=== PATIENT | male | born 1940 | race Hispanic/Latino ===

== ENCOUNTER 2020-08-04 12:57 | Emergency (ER) | payer OTHER, MEDICARE ==
[~2020-08-04 12:57] MED LIST: LOSA50TA64 PO; MELO-106 PO; TAMS0.4C32 PO
[2020-08-04 13:33] LABS: BASOPHILS % (AUTO) 0.2 % (0.0-5.0); HEMATOCRIT 38.1 % (42-54); LYMPHOCYTES % (AUTO) 28.5 % (21.0-51.0); MEAN CORPUSCULAR HEMOGLOBIN 32.7 pg (27.0-33.0); MEAN CORPUSCULAR HGB CONC 36.2 g/dL (32.0-36.0); MEAN CORPUSCULAR VOLUME 90.3 fL (79-99); MONOCYTES % (AUTO) 7.3 % (3.0-13.0); NEUTROPHILS % (AUTO) 62.8 % (40.0-77.0); PLATELET COUNT (AUTO) 239 K/uL (130-400); RED BLOOD CELL COUNT(AUTO) 4.22 MIL/uL (4.50-6.20); RED CELL DISTRIBUTION WIDTH 11.9 % (11.0-15.5); WHITE BLOOD COUNT (AUTO) 6.3 K/uL (4.8-10.8)
[2020-08-04 13:48] LABS: CREATININE 0.8 mg/dL (0.5-1.5); POTASSIUM 4.5 mmol/L (3.5-5.1)
[2020-08-04 13:52] LABS: ALBUMIN 3.9 g/dL (3.5-5.0); BILIRUBIN,TOTAL 0.3 mg/dL (0.2-1.0); MAGNESIUM 1.8 mg/dL (1.80-2.40); TOTAL PROTEIN, SERUM 7.3 g/dL (6.0-8.3)
== END 2020-08-04 15:02 | disposition home or self-care (01) ==
LOC: EDH 12:57
DX: R19.7 Diarrhea, unspecified (principal); K21.9 Gastro-esophageal reflux disease without esophagitis; I10 Essential (primary) hypertension; Z88.6 Allergy status to analgesic agent; Z79.899 Other long term (current) drug therapy
CPT/HCPCS: 36415; 80053; 83735; 85025; 96360

== ENCOUNTER → 2020-09-27 | Outpatient (CLI) | payer OTHER, MEDICARE | END | disposition home or self-care (01) | LOC: RAH 08:27 | PROVIDERS: ATTEND Internal Medicine Gastroenterology | DX: K57.30 Diverticulosis of large intestine without perforation or abscess without bleeding (principal); N28.1 Cyst of kidney, acquired; K40.90 Unilateral inguinal hernia, without obstruction or gangrene, not specified as recurrent; Z90.49 Acquired absence of other specified parts of digestive tract | CPT/HCPCS: 74178 ==

== ENCOUNTER → 2020-12-30 | Outpatient (CLI) | payer OTHER, MEDICARE ==
[~2020-12-30] MED LIST changes: +IOHEXOL-350 50ML VIAL IV ONE
== END | disposition home or self-care (01) ==
LOC: RAH 10:31
PROVIDERS: ATTEND Internal Medicine Gastroenterology
DX: R59.0 Localized enlarged lymph nodes (principal); R63.4 Abnormal weight loss
CPT/HCPCS: 74178; Q9967

== ENCOUNTER 2023-09-27 16:31 | Emergency (ER) | payer OTHER, MEDICARE ==
[~2023-09-27] VITALS: Ht 162.6 cm; Wt 63.5 kg
[~2023-09-27 16:31] MED LIST changes: -IOHEXOL-350 50ML VIAL IV ONE
[2023-09-27 19:01] LABS: RAPID GROUP A STREP negative (NEGATIVE)
[2023-09-27 19:08] LABS: SARS-CoV-2, RNA, NAAT NEGATIVE SARS CoV-2 (NEGATIVE)
[2023-09-27 19:12] LABS: INFLUENZA TYPE A Negative For Type A (NEGATIVE); INFLUENZA TYPE B Negative For Type B (NEGATIVE)
[2023-09-27 19:47] VITALS: BP 140/66; PULSE 84; RESP 18; O2SAT 97
[2023-09-27] MEDS ORDERED: BROM118S48 PO (20:07)
[2023-09-27] MEDS ORDERED: PRED20TA3 PO (20:07)
[2023-09-27] MEDS ORDERED: FLUT16H NASAL (20:07)
[2023-10-02] MEDS ORDERED: OMEP40CA21 PO (08:36)
[2023-10-02] MEDS ORDERED: LISI20TA24 PO (08:36)
== END 2023-09-27 20:14 | disposition home or self-care (01) ==
LOC: EDH 16:31
DX: J06.9 Acute upper respiratory infection, unspecified (principal); R05.9 Cough, unspecified; Z20.822 Contact with and (suspected) exposure to COVID-19
CPT/HCPCS: 99284; 71045; 87635; 87880; 87804 ×2; C9803

== ENCOUNTER 2025-04-21 02:29 | Emergency (ER) | payer OTHER, MEDICARE ==
[~2025-04-21] VITALS: Ht 162.6 cm; Wt 65.8 kg
[~2025-04-21 02:29] MED LIST changes: +FLUT16H NASAL; +LISI20TA24 PO; -LOSA50TA64 PO; -MELO-106 PO; +OMEP40CA21 PO
[2025-04-21 02:35] VITALS: TEMP 98.2
[2025-04-21] MEDS: LACTATED RINGERS 1000ML 1,000 ML IV ONE (02:44)
[2025-04-21 03:05] LABS: CREATININE 0.8 mg/dL (0.5-1.3); GLOMERULAR FILTR. RATE CALC 88.0 mL/min (>90); GLUCOSE,RANDOM 112.0 mg/dL (70-105); SODIUM SERUM 138.0 mmol/L (136-145); UREA NITROGEN, BLOOD 17.0 mg/dL (7-18)
[2025-04-21 03:07] LABS: IMMATURE GRANULOCYTE ABSOLUTE 0.03 K/uL (0-1); NUCLEATED RED BLOOD CELLS 0.0 % (0.0-0.19); PLATELET COUNT (AUTO) 202 K/uL (130-400); RED BLOOD CELL COUNT(AUTO) 4.11 MIL/uL (4.50-6.20); RED CELL DISTRIBUTION WIDTH 12.5 % (11.0-15.5); WHITE BLOOD COUNT (AUTO) 6.3 K/uL (4.8-10.8)
[2025-04-21 03:10] LABS: CREATINE KINASE, TOTAL 100.0 U/L (21-232)
[2025-04-21 03:30] LABS: SARS-CoV-2, RNA, NAAT NEGATIVE SARS CoV-2 (NEGATIVE)
[2025-04-21 03:34] LABS: INFLUENZA TYPE A Negative For Type A (NEGATIVE); INFLUENZA TYPE B Negative For Type B (NEGATIVE)
--- NOTE | 2025-04-21 03:57 | ERN ---
General Chief Complaint: Dizzy/Light Headed Stated Complaint: DIZZINESS Time Seen by MD: 02:33 Source: patient History of Present Illness Initial Comments PATIENT IS A 84-YEAR-OLD MALE COMING IN TO BE EVALUATED FOR GENERALIZED BODY WEAKNESS AND NEAR-SYNCOPE. PER PATIENT THIS HAS BEEN ONGOING SINCE EARLIER TODAY. STATES HE FELT VERY WEAK NAUSEOUSNESS THAT HAS HAS A COME IN TO BE EVALUATED. Allergies: Coded Allergies: codeine (Unverified Allergy, Unknown, 09/27/23) diphenhydramine (Unverified Allergy, Unknown, 01/21/16) Home Meds Active Scripts Fluticasone Propionate (Flonase Nasal [place]) 50 Mcg/Actuation [place], 1 SPRAY NASAL BID for 7 Days, #50 SPRAY Prov:CORNELIA RON PLATING DEPARTMENT HELPER 09/27/23 Reported Medications Lisinopril (Lisinopril) 20 Mg Tablet, 20 MG PO DAILY, TAB 10/02/23 Omeprazole (Omeprazole) 40 Mg Capsule.dr, 40 MG PO DAILY, CAP 10/02/23 Tamsulosin HCl (Tamsulosin HCl) 0.4 Mg Cap.er.24h, 0.4 MG PO DAILY, CAPSULE. 01/21/16 Past Medical History Past Medical History: GERD, Hypertension Past Surgical History: Unknown Family History Family History: Negative ROS Dictation CONSTITUTIONAL: NO CHILLS, NO FEVER,WEAKNESS, NO DIAPHORESIS, MALAISE. HEAD/FACE: NO SIGNS OF TRAUMA. EENT: NO EYE PAIN, NO BLURRED VISION, NO TEARING, NO DOUBLE VISION, NO EAR PAIN, NO EAR DISCHARGE, NO NOSE PAIN, NO NASAL CONGESTION, NO THROAT PAIN, NO THROAT SWELLING, NO MOUTH PAIN. RESPIRATORY: NO COUGH, NO ORTHOPNEA, NO SOB, NO STRIDOR, NO WHEEZING. CARDIOVASCULAR: NO CHEST PAIN, NO EDEMA, NO PALPITATIONS, NO SYNCOPE. GASTROINTESTINAL/ABDOMINAL: NO ABDOMINAL PAIN, NO CONSTIPATION, NO DIARRHEA, NO NAUSEA, NO VOMITING. GENITOURINARY: NO ABNORMAL DISCHARGE, NO DYSURIA, NO FREQUENT URINATION, NO HEMATURIA. NO COMPLAINTS OF PAIN IN THE GENITALS. MUSCULOSKELETAL: NO BACK PAIN, NO GOUT, NO JOINT PAIN, NO JOINT SWELLING, NO MUSCLE PAIN, NO MUSCLE STIFFNESS, NO NECK PAIN. INTEGUMENTARY: NO CHANGE IN COLOR, NO CHANGE IN HAIR/NAILS, NO DRYNESS, NO LESION, NO LUMPS, NO RASH. NEUROLOGICAL/PSYCH: NO ANXIETY, NOT DEPRESSED, NO EMOTIONAL PROBLEM, NO HEADACHE, NO NUMBNESS, NO PRE-EXISTING DEFICIT, NO HISTORY OF SEIZURES, NO TREMORS, NO WEAKNESS. HEMATOLOGIC/LYMPHATIC: NOT ANEMIC, NO HISTORY OF BLOOD CLOTS, NO APPARENT BLEEDING, NO BRUISING, GLANDS NOT SWOLLEN. ALL SYSTEMS NEGATIVE, EXCEPT NOTED. Physical Exam Physical Exam Dictation VITAL SIGNS: REVIEWED. GENERAL APPEARANCE: ALERT, ORIENTED X3, NO ACUTE DISTRESS, OBESE. HEAD AND FACE: NON-TRAUMATIC. EYES: PERRL, PINK CONJUNCTIVAS, EYELID NO TRAUMA, ANTERIOR CHAMBER CLEAR. EARS: PINNAS INTACT AND NO SIGNS OF TRAUMA OR ERYTHEMA. EAR CANALS CLEAR AND NO DISCHARGE. TMS NO ERYTHEMA. NOSE: NO DISCHARGE, NO BLEEDING. OROPHARYNX: MOUTH NORMAL, TEETH NO CARIES, TONGUE PINK. PHARYNX CLEAR, NO ERYTHEMA. TONSILS NO EXUDATES, NO ABSCESSES NOTED. MUCOUS MEMBRANE MOIST. NECK: SUPPLE, NON-TENDER, NO THYROMEGALY, NO MASSES, NO JVD, NO BRUITS. BREAST: DEFERRED. CHEST: NO TENDERNESS, NO CREPITUS, NO PARADOXICAL MOVEMENT, NO RETRACTIONS. LUNGS: CLEAR, WELL-VENTILATED, SYMMETRIC, NO RALES, NO WHEEZING, NO RHONCHI, NO STRIDOR, GOOD BREATH SOUNDS BILATERALLY. HEART: REGULAR RATE, REGULAR RHYTHM, NO MURMUR, NO GALLOPS. VASCULAR: NO PERIPHERAL EDEMA. ABDOMEN: SOFT, POSITIVE BOWEL SOUNDS, NONDISTENDED, NO GUARDING, NONTENDER, NO REBOUND, NO MASSES NO HEPATOMEGALY, NO SPLENOMEGALY, NO MUÑOZ'S SIGN, NO HERNIAS. RECTAL: DEFERRED. GENITAL: DEFERRED. NEUROLOGICAL: NORMAL SPEECH, GROSS MOTOR FUNCTION INTACT, GROSS SENSORY FUNCTION INTACT. MUSCULOSKELETAL: NECK NONTENDER, FULL RANGE OF MOTION, BACK NONTENDER, FULL RANGE OF MOTION. EXTREMITIES: NONTENDER, FULL RANGE OF MOTION. SKIN: COLOR PINK, DRY, NO TURGOR, NO RASH, NO LACERATIONS, NO ABRASIONS, NO CONTUSIONS. LYMPHATICS: DEFERRED. Results Laboratory and Microbiology Lab and Micro Result Laboratory Tests Test 04/21/25 02:42 04/21/25 03:10 04/21/25 06:00 White Blood Count 6.3 K/uL (4.8-10.8) Red Blood Count 4.11 MIL/uL (4.50-6.20) L Hemoglobin 13.5 g/dL (14.0-18.0) L Hematocrit 37.8 % (42-54) L Mean Corpuscular Volume 92.0 fL (79-99) Mean Corpuscular Hemoglobin 32.8 pg (27.0-33.0) Mean Corpuscular Hemoglobin Concent 35.7 g/dL (32.0-36.0) Red Cell Distribution Width 12.5 % (11.0-15.5) Platelet Count 202 K/uL (130-400) Mean Platelet Volume 9.3 fL (7.5-10.5) Immature Granulocyte % (Auto) 0.5 % (0-1) Neutrophils (%) (Auto) 47.4 % (40.0-77.0) Lymphocytes (%) (Auto) 41.4 % (21.0-51.0) Monocytes (%) (Auto) 7.2 % (3.0-13.0) Eosinophils (%) (Auto) 3.3 % (0.0-8.0) Basophils (%) (Auto) 0.2 % (0.0-5.0) Neutrophils # (Auto) 3.0 K/uL (1.8-7.7) Lymphocytes # (Auto) 2.6 K/uL (1.0-4.8) Monocytes # (Auto) 0.5 K/uL (0.1-1.0) Eosinophils # (Auto) 0.21 K/uL (0.00-0.70) Basophils # (Auto) 0.01 K/uL (0.00-0.20) Absolute Immature Granulocyte (auto 0.03 K/uL (0-1) Nucleated Red Blood Cells 0.0 % (0.0-0.19) Sodium Level 138 mmol/L (136-145) Potassium Level 4.3 mmol/L (3.5-5.1) Chloride Level 102 mmol/L (101-111) Carbon Dioxide Level 26 mmol/L (21-32) Blood Urea Nitrogen 17 mg/dL (7-18) Creatinine 0.8 mg/dL (0.5-1.3) Glomerular Filtration Rate Calc 88 mL/min (>90) Random Glucose 112 mg/dL (70-105) H Total Calcium 9.0 mg/dL (8.5-10.1) Magnesium Level 1.90 mg/dL (1.80-2.40) Total Creatine Kinase 100 U/L (21-232) # Troponin I High Sensitivity 23 ng/L (4-75) Influenza Type A Antigen Negative For Type A Influenza Type B Antigen Negative For Type B SARS-CoV-2, RNA, NAAT NEGATIVE SARS CoV-2 Urine Color YELLOW (YELLOW) Urine Appearance CLEAR (CLEAR) Urine pH 6.5 (5.0-8.0) Urine Specific [place] 1.007 (1.001-1.031) Urine Protein NEGATIVE mg/dL (NEGATIVE) Urine Glucose (UA) NEGATIVE mg/dL (NEGATIVE) Urine Ketones NEGATIVE mg/dL (NEGATIVE) Urine Occult Blood NEGATIVE (NEGATIVE) Urine Nitrate NEGATIVE (NEGATIVE) Urine Bilirubin NEGATIVE mg/dL (NEGATIVE) Urine Urobilinogen 0.2 mg/dL (0.2-1.0) Urine Leukocyte Esterase NEGATIVE Kyle/uL Labs Reviewed?: Yes EKG/XRAY/US/CT/MRI EKG Comment 04/21/2025 TIME 2:34 A.M. VENTRICULAR RATE [address] WAVE ELEVATION OR DEPRESSION X-RAY Comment IMAGING REPORT Signed PATIENT: SHELDON OCHOA MR#: [id number] : 1940 SEX: M AGE: 84 LOCATION: [facility] ORDER 7 STATUS: [facility] REPORT#: [id number] SERVICE 6 REASON: WEAKNESS ORDERING PHYSICIAN: LUKE MCDANIEL MD PROCEDURE: CXR1VW - CHEST 1VW EXAM: CR Chest, 1 view CLINICAL HISTORY: Weakness. COMPARISON: None provided. FINDINGS: The lungs show no infiltrates or other acute findings. No pleural effusion or pneumothorax. The cardiomediastinal silhouette is within normal limits. No acute osseous abnormality. IMPRESSION: No acute cardiopulmonary process is evident. /Joppa DICTATED BY: ANABELA CARRANZA Jr., MD DATE: 04/21/25509 ELECTRONICALLY SIGNED BY: ANABELA CARRANZA Jr., MD DATE: 04/21/25509 MDM MDM: DIFFERENTIAL DIAGNOSIS: NEAR-SYNCOPE, dehydration, RATIONALE: TESTS CONSIDERED AND ORDERED SECONDARY TO SHARED DECISION MAKING INCLUDE: PREVIOUS OUTSIDE RECORDS REVIEWED: OLD ER VISITS. RISK OF COMPLICATION AND/OR MORBIDITY OR MORTALITY OF PATIENT MANAGEMENT: NONE MEDICATIONS-PER MEDICATION RECONCILIATION NEED FOR HOSPITALIZATION: PATIENT DOES NOT MEET CRITERIA FOR HOSPITALIZATION. Patient is a 84-year-old gentleman coming in to be evaluated for generalized body weakness. Patient was hydrated states he feels much better wants to go home. Patient will be discharged in stable condition. ED Course Orders Procedure Category Date Status Time Cbc With Differential LAB 04/21/25 Complete 02:37 Chest 1vw RAD 04/21/25 Resulted 02:37 12 Lead Ekg Tracing- EKG 04/21/25 Logged Technical 02:37 Lactated Ringers PHA 04/21/25 Complete 1000ml (Lactated 03:00 Magnesium LAB 04/21/25 Complete 02:37 Creatine Kinase, Total LAB 04/21/25 Complete 02:37 Troponin I High LAB 04/21/25 Complete Sensitivity 02:37 Urinalysis Profile LAB 04/21/25 Complete 02:37 Basic Metabolic Panel LAB 04/21/25 Complete 02:37 Covid Rna Naat LAB 04/21/25 Complete 02:37 Influenza Type A & B, LAB 04/21/25 Complete Rapid 02:37 Current Medications Medications (Trade) Dose Ordered Sig/Lisa Route PRN Reason Start Time Stop Time Status Last Admin Dose Admin Lactated Ringer's 1,000 ml @ 0 mls/hr ONCE ONCE IV 04/21/25 03:00 04/21/25 03:01 DC 04/21/25 02:44 Vital Signs Date Time Temp Pulse Resp B/P (MAP) Pulse Ox O2 Delivery O2 Flow Rate FiO2 04/21/25 05:21 69 16 116/59 96 Room Air* 0 04/21/25 03:55 72 16 121/62 96 Room Air* 0 04/21/25 03:12 81 18 130/73 97 Room Air* 0 04/21/25 02:35 98.2 76 16 124/61 97 Room Air DX & DISP Disposition: Discharge Departure Impression: Primary Impression: Dehydration Condition: Stable Additional Instructions: FOLLOW-UP WITH PRIMARY CARE PROVIDER IN 1 TO 2 DAYS. TAKE MEDICATIONS DIRECTED HERE IN THE EMERGENCY ROOM. OKAY TO CONTINUE HOME MEDICATIONS UNLESS OTHERWISE DISCUSSED DURING YOUR VISIT IN THE EMERGENCY ROOM TODAY. RETURN TO YOUR NEAREST EMERGENCY ROOM IF SYMPTOMS WORSEN OR IF THERE IS NO IMPROVEMENT. CALL 911 IF YOU NEED IMMEDIATE ASSISTANCE. TAKE TYLENOL YHMO-ABE-GCCGADE NEEDED AND IF NO CONTRAINDICATIONS ARE PRESENT. INCREASE ORAL HYDRATION. A WOUND CULTURE OR URINE CULTURE WAS ORDERED HERE IN THE EMERGENCY ROOM DEPARTMENT PLEASE FOLLOW-UP WITH PRIMARY CARE PROVIDER AND ADVISE THEM TO GET REPORTS FROM OUR FACILITY. IF YOU HAD ANY AEZEM WRAP/SPLINTS THAT WERE APPLIED HERE, PLEASE DO NOT REMOVE THEM UNTIL YOU SEE YOUR PRIMARY CARE OR SPECIALTY. Referrals: Referrals: MELISSA BRANDON MD (PCP) Time of Disposition: 06:22 LUKE MCDANIEL MD Apr 21, 2025 03:57
--- NOTE | 2025-04-21 04:12 | HMCIMG ---
EXAM: CR Chest, 1 view CLINICAL HISTORY: Weakness. COMPARISON: None provided. FINDINGS: The lungs show no infiltrates or other acute findings. No pleural effusion or pneumothorax. The cardiomediastinal silhouette is within normal limits. No acute osseous abnormality. IMPRESSION: No acute cardiopulmonary process is evident. /Rector
[2025-04-21 06:12] LABS: APPEARANCE,URINE CLEAR (CLEAR); GLUCOSE, URINE (UA) NEGATIVE (NEGATIVE); LEUKOCYTE ESTERASE ,URINE NEGATIVE Leu/uL (NEGATIVE); NITRATE,URINE NEGATIVE (NEGATIVE); OCCULT BLOOD,URINE NEGATIVE (NEGATIVE)
[2025-04-21 06:18] LABS: ADD UA MICROSCOPIC NO
[2025-04-21 06:20] VITALS: BP 120/60; PULSE 75; RESP 17; O2SAT 97
--- NOTE | 2025-04-21 06:48 | EKG ---
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
== END 2025-04-21 06:33 | disposition home or self-care (01) ==
LOC: EDH 02:29
DX: E86.0 Dehydration (principal); I10 Essential (primary) hypertension; K21.9 Gastro-esophageal reflux disease without esophagitis; Z79.899 Other long term (current) drug therapy; Z88.5 Allergy status to narcotic agent; Z20.822 Contact with and (suspected) exposure to COVID-19
CPT/HCPCS: 99285; 96360; 71045; 87635; 82550; 83735; 84484; 80048; 85025; 87804 ×2; 81003; 36415; 93005; J7120

== ENCOUNTER 2025-07-28 22:09 | Emergency (ER) | payer OTHER, MEDICAID ==
[~2025-07-28] VITALS: Ht 162.6 cm; Wt 64.0 kg
[2025-07-28 22:44] LABS: IMMATURE GRANULOCYTE ABSOLUTE 0.03 K/uL (0-1); NUCLEATED RED BLOOD CELLS 0.0 % (0.0-0.19); PLATELET COUNT (AUTO) 194 K/uL (130-400); RED BLOOD CELL COUNT(AUTO) 3.81 MIL/uL (4.50-6.20); RED CELL DISTRIBUTION WIDTH 12.4 % (11.0-15.5); WHITE BLOOD COUNT (AUTO) 6.2 K/uL (4.8-10.8)
[2025-07-28 22:52] LABS: CREATININE 0.8 mg/dL (0.5-1.3); GLOMERULAR FILTR. RATE CALC 88.0 mL/min (>90); GLUCOSE,RANDOM 104.0 mg/dL (70-105); SODIUM SERUM 137.0 mmol/L (136-145); UREA NITROGEN, BLOOD 23.0 mg/dL (7-18)
[2025-07-28 22:57] LABS: ASPARTATE AMINOTRANSFERASE 25.0 U/L (10-37); TOTAL PROTEIN, SERUM 6.8 g/dL (6.0-8.3)
--- NOTE | 2025-07-28 23:22 | ERN ---
General Chief Complaint: Abdominal Pain Stated Complaint: LEFT SIDED ABDOMINAL PAIN Time Seen by MD: 22:20 Time Seen by Midlevel: 22:20 Source: patient History of Present Illness Initial Comments 84-year-old male presenting to the ER with left-sided abdominal pain that started prior to arrival. However, on arrival with the patient states his symptoms completely resolved. Denies any nausea, vomiting, fever, bloody stool, or any other symptoms at this time. Allergies: Coded Allergies: codeine (Unverified Allergy, Unknown, 09/27/23) diphenhydramine (Unverified Allergy, Unknown, 01/21/16) Home Meds Active Scripts Fluticasone Propionate (Flonase Nasal [place]) 50 Mcg/Actuation [place], 1 SPRAY NASAL BID for 7 Days, #50 SPRAY Prov:CORNELIA RON LATENT FINGERPRINT EXAMINER 09/27/23 Reported Medications Lisinopril (Lisinopril) 20 Mg Tablet, 20 MG PO DAILY, TAB 10/02/23 Omeprazole (Omeprazole) 40 Mg Capsule.dr, 40 MG PO DAILY, CAP 10/02/23 Tamsulosin HCl (Tamsulosin HCl) 0.4 Mg Cap.er.24h, 0.4 MG PO DAILY, CAPSULE. 01/21/16 Past Medical History Past Medical History: GERD, Hypertension Past Surgical History: Unknown Family History Family History: Negative ROS Dictation CONSTITUTIONAL: Negative except for HPI HEAD/FACE: Negative except for HPI EENT: Negative except for HPI RESPIRATORY: Negative except for HPI GASTROINTESTINAL/ABDOMINAL: Negative except for HPI GENITOURINARY: Negative except for HPI MUSCULOSKELETAL: Negative except for HPI INTEGUMENTARY: Negative except for HPI NEUROLOGICAL/PSYCH: Negative except for HPI HEMATOLOGIC/LYMPHATIC: Negative except for HPI All Systems Negative, Except as noted above. 13 point review of systems assessed and all negative except for above. Physical Exam Physical Exam Dictation Vital Signs reviewed General Appearance: Alert, oriented x 3, no acute distress, well developed, nourished. Head and Face: non-traumatic. Eyes: PERRL, pink conjunctivas, eyelid no trauma, anterior chamber with arcus senilis. Ears: Pinnas intact and no signs of trauma or erythema ear canals clear and no discharge TM no erythema Nose: No discharge, no bleeding. Oropharynx: Mouth normal, tongue pink, pharynx clear,no erythema, tonsils no exudates, no abscesses noted, mucous membrane moist Neck: Supple, non-tender, no thyromegaly, no masses, no JVD, no bruits Breast:Deferred Chest:No tenderness, no crepitus, no paradoxical movement, no retractions Lungs:Clear, well-ventilated, symmetric, no rales, no wheezing, no rhonchi, no stridor, good breath sounds bilaterally Heart: Regular rate, regular rhythm, no murmur, no gallops Vascular: no peripheral edema, Abdomen: Soft, positive bowel sounds, nondistended, no guarding, nontender, no rebound, no masses no hepatomegaly, no splenomegaly, no Mejia's sign, no hernias. Rectal: Deferred Genital: Deferred Neurological: Normal speech, motor function intact, sensory function intact Musculoskeletal: Neck nontender, full range of motion, back nontender, full range of motion, Extremities: nontender, full range of motion Skin: Color pink, dry, no turgor, no rash, no lacerations, no abrasions, no contusions. Lymphatic: Deferred Results Laboratory and Microbiology Lab and Micro Result Laboratory Tests Test 07/28/25 22:23 07/28/25 23:18 White Blood Count 6.2 K/uL (4.8-10.8) Red Blood Count 3.81 MIL/uL (4.50-6.20) L Hemoglobin 12.6 g/dL (14.0-18.0) L Hematocrit 35.0 % (42-54) L Mean Corpuscular Volume 91.9 fL (79-99) Mean Corpuscular Hemoglobin 33.1 pg (27.0-33.0) H Mean Corpuscular Hemoglobin Concent 36.0 g/dL (32.0-36.0) Red Cell Distribution Width 12.4 % (11.0-15.5) Platelet Count 194 K/uL (130-400) Mean Platelet Volume 9.8 fL (7.5-10.5) Immature Granulocyte % (Auto) 0.5 % (0-1) Neutrophils (%) (Auto) 64.9 % (40.0-77.0) Lymphocytes (%) (Auto) 24.4 % (21.0-51.0) Monocytes (%) (Auto) 8.1 % (3.0-13.0) Eosinophils (%) (Auto) 1.9 % (0.0-8.0) Basophils (%) (Auto) 0.2 % (0.0-5.0) Neutrophils # (Auto) 4.0 K/uL (1.8-7.7) Lymphocytes # (Auto) 1.5 K/uL (1.0-4.8) Monocytes # (Auto) 0.5 K/uL (0.1-1.0) Eosinophils # (Auto) 0.12 K/uL (0.00-0.70) Basophils # (Auto) 0.01 K/uL (0.00-0.20) Absolute Immature Granulocyte (auto 0.03 K/uL (0-1) Nucleated Red Blood Cells 0.0 % (0.0-0.19) Sodium Level 137 mmol/L (136-145) Potassium Level 4.4 mmol/L (3.5-5.1) Chloride Level 103 mmol/L (101-111) Carbon Dioxide Level 25 mmol/L (21-32) Blood Urea Nitrogen 23 mg/dL (7-18) H Creatinine 0.8 mg/dL (0.5-1.3) Glomerular Filtration Rate Calc 88 mL/min (>90) Random Glucose 104 mg/dL (70-105) Total Calcium 8.7 mg/dL (8.5-10.1) Total Bilirubin 0.5 mg/dL (0.2-1.0) Direct Bilirubin 0.2 mg/dL (0.0-0.3) Aspartate Amino Transf (AST/SGOT) 25 U/L (10-37) Alanine Aminotransferase (ALT/SGPT) 22 U/L (12-78) Alkaline Phosphatase 36 U/L (50-136) L Total Protein 6.8 g/dL (6.0-8.3) Albumin 3.7 g/dL (3.5-5.0) Lipase 35 U/L (16-77) Urine Color LIGHT-YELLOW (YELLOW) Urine Appearance CLEAR (CLEAR) Urine pH 6.0 (5.0-8.0) Urine Specific [place] 1.016 (1.001-1.031) Urine Protein NEGATIVE mg/dL (NEGATIVE) Urine Glucose (UA) NEGATIVE mg/dL (NEGATIVE) Urine Ketones NEGATIVE mg/dL (NEGATIVE) Urine Occult Blood +- (TRACE) (NEGATIVE) H Urine Nitrate NEGATIVE (NEGATIVE) Urine Bilirubin NEGATIVE mg/dL (NEGATIVE) Urine Urobilinogen 0.2 mg/dL (0.2-1.0) Urine Leukocyte Esterase NEGATIVE Kyle/uL Urine RBC 2-5 /HPF (0-1) H Urine WBC 0-1 /HPF (0-1) Urine Squamous Epithelial Cells RARE /HPF (0-2) Urine Bacteria RARE /HPF (None Seen) Labs Reviewed?: Yes MDM MDM: 84-year-old male presenting to the ER with left-sided abdominal pain that started prior to arrival. However, on arrival with the patient states his symptoms completely resolved. Denies any nausea, vomiting, fever, bloody stool, or any other symptoms at this time. On physical examination patient is in no acute distress. Vital signs are stable. Patient is afebrile and nontoxic appearing. His abdominal examination is unremarkable. He has no left lower quadrant or left upper quadrant abdominal tenderness, rebound, or guarding. His CBC shows no leukocytosis. His chemistries are stable. Patient has no history of diverticulitis. No need for advanced imaging given unremarkable labs and unremarkable physical examination. Patient has been pain-free during his entire ER visit. We will discharged home with strict return precautions Differential diagnosis: Constipation, diverticulitis, There are no social concerns with this patient. Prescription drug management Prescriptions will include: None Medical management and examination interpretation discussions were had by me with other qualified healthcare professionals as indicated for the patient's care. ED Course Orders Procedure Category Date Status Time Vital Signs Per CPOE 07/28/25 Transmitted Routine 22:15 Saline Lock Iv CPOE 07/28/25 Transmitted 22:15 Cbc With Differential LAB 07/28/25 Complete 22:15 Lipase LAB 07/28/25 Complete 22:15 Urinalysis Profile LAB 07/28/25 Complete 22:15 Basic Metabolic Panel LAB 07/28/25 Complete 22:15 Hepatic Function Panel LAB 07/28/25 Complete 22:23 Vital Signs Date Time Temp Pulse Resp B/P (MAP) Pulse Ox O2 Delivery O2 Flow Rate FiO2 07/29/25 00:47 98.2 72 14 132/68 97 Room Air* 0 21 07/28/25 22:29 97.9 76 14 137/72 96 Room Air* 0 21 DX & DISP Disposition: Discharge Departure Impression: Primary Impression: Left-sided abdominal pain of unknown etiology Condition: Stable Additional Instructions: Work today is stable. Your abdominal pain resolved while you were in the emergency department. Your physical examination showed no concerning findings. Your blood work does not show any signs infection. Please follow up your primary care doctor tomorrow for evaluation. If you develop any new or worsening symptoms please report to the ER further evaluation. Referrals: MELISSA BRANDON MD (PCP) Time of Disposition: 23:21 I have reviewed the case, and I agree with, Diagnosis and Plan I performed the substantive portion of the visit. I have reviewed and person ally made and approve the management plan that is documented in the note by myself or the KAM. I acknowledge for responsibility for the patient's management plan. RENETTA PAYAN PAC Jul 28, 2025 23:22
[2025-07-28 23:43] LABS: ADD UA MICROSCOPIC YES; APPEARANCE,URINE CLEAR (CLEAR); GLUCOSE, URINE (UA) NEGATIVE (NEGATIVE); LEUKOCYTE ESTERASE ,URINE NEGATIVE Leu/uL (NEGATIVE); NITRATE,URINE NEGATIVE (NEGATIVE); OCCULT BLOOD,URINE +- (TRACE) (NEGATIVE)
[2025-07-28 23:46] LABS: SQUAMOUS EPITHELIAL CELL,UR RARE /HPF (0-2)
[2025-07-29 00:47] VITALS: BP 132/68; PULSE 72; RESP 14; TEMP 98.2; O2SAT 97
== END 2025-07-29 00:49 | disposition home or self-care (01) ==
LOC: EDH 22:09
DX: R10.9 Unspecified abdominal pain (principal); I10 Essential (primary) hypertension; K21.9 Gastro-esophageal reflux disease without esophagitis; Z88.5 Allergy status to narcotic agent; Z79.899 Other long term (current) drug therapy
CPT/HCPCS: 36415; 80048; 80076; 81001; 83690; 85025; 99283

== ENCOUNTER 2025-09-09 00:22 | Emergency (ER) | payer OTHER, MEDICAID ==
[~2025-09-09] VITALS: Ht 162.6 cm; Wt 63.5 kg
[2025-09-09] MEDS ORDERED: LACTATED RINGERS 1000ML IV STA (00:52)
--- NOTE | 2025-09-09 00:56 | ERN ---
General Chief Complaint: Weakness Stated Complaint: GENERAL BODY WEAKNESS Time Seen by MD: 00:25 Source: patient History of Present Illness Initial Comments Patient comes in with a two day history of right blurry vision as well as increasing weakness and feeling off balance. He states he saw his primary care doctor two days ago regarding his right eye but nothing was done. He states he was admitted here and discharged with a diagnosis of dehydration as well as spending a week in the hospital here for pneumonia. I can not find in our medical chart and admission for pneumonia here. Patient told the cardiology clinical consultant that he has been feeling weak for the last two months and he comes in today because he felt worse. Timing/Duration: unsure Severity: moderate Allergies: Coded Allergies: codeine (Unverified Allergy, Unknown, 09/27/23) diphenhydramine (Unverified Allergy, Unknown, 01/21/16) Home Meds Active Scripts Fluticasone Propionate (Flonase Nasal [place]) 50 Mcg/Actuation [place], 1 SPRAY NASAL BID for 7 Days, #50 SPRAY Prov:CORNELIA RON ENTERPRISE RECORDS ANALYST 09/27/23 Reported Medications Lisinopril (Lisinopril) 20 Mg Tablet, 20 MG PO DAILY, TAB 10/02/23 Omeprazole (Omeprazole) 40 Mg Capsule.dr, 40 MG PO DAILY, CAP 10/02/23 Tamsulosin HCl (Tamsulosin HCl) 0.4 Mg Cap.er.24h, 0.4 MG PO DAILY, CAPSULE. 01/21/16 Past Medical History Past Medical History: GERD, Hypertension Medical History Other: BPH Past Surgical History: Unknown Family History Family History: Negative Social History Social History: Lives alone Constitutional: (-) chills, (-) diaphoresis, (-) fever, (-) malaise, (-) weakne ss, (-) other documentation EENTM: (+) blurred vision Respiratory: (-) cough, (-) orthopnea, (-) short of breath, (-) stridor, (-) wheezing, (-) other documentation Cardiovascular: (-) chest pain, (-) edema, (-) palpitations, (-) syncope, (-) dyspnea on exertion, (-) other documentation Gastrointestinal/Abdominal: (-) nausea, (-) vomiting, (-) diarrhea, (-) abdominal pain, (-) abdominal distention, (-) constipation, (-) rectal bleeding, (-) dark stool/melena, (-) other documentation Genitourinary: (-) penile discharge, (-) dysuria, (-) frequency, (-) hematuria, (-) pain, (-) other documentation Musculoskeletal: (-) Neck pain, (-) back pain, (-) Flank Pain, (-) joint pain, (-) joint swelling, (-) muscle pain, (-) muscle stiffness, (-) gout, (-) other documentation Neuro: (-) altered mental status, (-) headache, (-) syncope, (-) paralysis, (-) numbness, (-) seizure, (-) pre-existing deficit, (-) tremors, (-) weakness, (-) dizziness, (-) slurred speech, (-) vertigo, (-) other documentation Physical Exam General Appearance: (+) no apparent distress Orientation: (+) alert, (+) oriented x 3 Head/Face Trauma: No Eye: bilateral eye normal inspection, bilateral eye PERRL, bilateral eye EOMI Ear, Nose, Throat: (+) hearing grossly normal, (+) normal ENT inspection Neck: (+) normal inspection, (+) supple, (+) full range of motion Respiratory: (+) chest non-tender, (+) lungs clear, (+) well ventilated Heart: (+) regular, (+) no gallop Vascular: (+) no edema, (+) normal peripheral pulse, (+) no JVD Gastrointestinal: (+) soft, (+) non-tender, (+) bowel sound present Results Laboratory and Microbiology Lab and Micro Result Laboratory Tests Test 09/09/25 01:16 09/09/25 01:33 White Blood Count 5.5 K/uL (4.8-10.8) Red Blood Count 3.92 MIL/uL (4.50-6.20) L Hemoglobin 13.0 g/dL (14.0-18.0) L Hematocrit 36.2 % (42-54) L Mean Corpuscular Volume 92.3 fL (79-99) Mean Corpuscular Hemoglobin 33.2 pg (27.0-33.0) H Mean Corpuscular Hemoglobin Concent 35.9 g/dL (32.0-36.0) Red Cell Distribution Width 12.3 % (11.0-15.5) Platelet Count 209 K/uL (130-400) Mean Platelet Volume 9.3 fL (7.5-10.5) Immature Granulocyte % (Auto) 0.4 % (0-1) Neutrophils (%) (Auto) 53.8 % (40.0-77.0) Lymphocytes (%) (Auto) 33.9 % (21.0-51.0) Monocytes (%) (Auto) 8.8 % (3.0-13.0) Eosinophils (%) (Auto) 2.7 % (0.0-8.0) Basophils (%) (Auto) 0.4 % (0.0-5.0) Neutrophils # (Auto) 2.9 K/uL (1.8-7.7) Lymphocytes # (Auto) 1.9 K/uL (1.0-4.8) Monocytes # (Auto) 0.5 K/uL (0.1-1.0) Eosinophils # (Auto) 0.15 K/uL (0.00-0.70) Basophils # (Auto) 0.02 K/uL (0.00-0.20) Absolute Immature Granulocyte (auto 0.02 K/uL (0-1) Nucleated Red Blood Cells 0.0 % (0.0-0.19) Sodium Level 136 mmol/L (136-145) Potassium Level 4.2 mmol/L (3.5-5.1) Chloride Level 102 mmol/L (101-111) Carbon Dioxide Level 25 mmol/L (21-32) Blood Urea Nitrogen 20 mg/dL (7-18) H Creatinine 0.8 mg/dL (0.5-1.3) Glomerular Filtration Rate Calc 88 mL/min (>90) Random Glucose 107 mg/dL (70-105) H Total Calcium 8.5 mg/dL (8.5-10.1) Total Bilirubin 0.3 mg/dL (0.2-1.0) Aspartate Amino Transf (AST/SGOT) 14 U/L (10-37) Alanine Aminotransferase (ALT/SGPT) 18 U/L (12-78) Alkaline Phosphatase 41 U/L (50-136) L B-Type Natriuretic Peptide 10 pg/mL (0-100) Total Protein 6.8 g/dL (6.0-8.3) Albumin 3.7 g/dL (3.5-5.0) Urine Color LIGHT-YELLOW (YELLOW) Urine Appearance CLEAR (CLEAR) Urine pH 6.0 (5.0-8.0) Urine Specific [place] 1.015 (1.001-1.031) Urine Protein NEGATIVE mg/dL (NEGATIVE) Urine Glucose (UA) NEGATIVE mg/dL (NEGATIVE) Urine Ketones NEGATIVE mg/dL (NEGATIVE) Urine Occult Blood NEGATIVE (NEGATIVE) Urine Nitrate NEGATIVE (NEGATIVE) Urine Bilirubin NEGATIVE mg/dL (NEGATIVE) Urine Urobilinogen 0.2 mg/dL (0.2-1.0) Urine Leukocyte Esterase NEGATIVE Kyle/uL Labs Reviewed?: Yes EKG/XRAY/US/CT/MRI EKG: (+) NSR EKG Comment low voltage limb leads MDM MDM: Differential diagnosis: Hypotension, cardiac disease, dehydration, infection, UTI, malnutrition, orthostatic hypotension Rationale: Tests considered and ordered secondary to shared decision making include: Previous outside records reviewed: Old ER visits. Risk of complication and/or morbidity or mortality of patient management: None Medications-Per medication reconciliation Need for hospitalization: Patient does meet criteria for hospitalization. Need for emergency major/minor surgery: No There are no social concerns with this patient. Prescription drug management Prescriptions will include symptomatic care Patient's prior external medical records from other ER visits were reviewed by me as indicated. Prior testing and results from previous visits were reviewed. Prior tests were taken into account with medical decision making and resource utilization, independent historian/historians were used to obtain complete medical history. I independently interpreted the test that were performed, results were reviewed by me and considered findings on radiology if ordered. Patient's CBC shows mild anemia but is otherwise normal. Patient's chemistry panel is also likewise normal. There is a slight elevation in his BUN compared to baseline levels. His urine is negative for infection. Patient says he feels better I will discharge him home. ED Course Orders Procedure Category Date Status Time 12 Lead Ekg Tracing- EKG 09/09/25 Logged Technical 00:52 B-Type Natriuretic LAB 09/09/25 Complete Peptide 00:52 Comprehensive LAB 09/09/25 Complete Metabolic Panel 00:52 Cbc With Differential LAB 09/09/25 Complete 00:52 Urinalysis Profile LAB 09/09/25 Complete 00:52 Lactated Ringers PHA 09/09/25 Complete 1000ml (Lactated 00:52 Orthostatic Vital CPOE 09/09/25 Transmitted Signs 01:06 Lactated Ringers PHA 09/09/25 Complete 1000ml (Lactated 01:06 Current Medications Medications (Trade) Dose Ordered Sig/Lisa Route PRN Reason Start Time Stop Time Status Last Admin Dose Admin Lactated Ringer's (Lactated Ringers 1000ml) 1,000 ml BOLUS STAT IV 09/09/25 00:52 09/09/25 01:07 DC Lactated Ringer's (Lactated Ringers 1000ml) 2,000 ml BOLUS STAT IV 09/09/25 01:06 09/09/25 01:08 DC 09/09/25 02:16 Vital Signs Date Time Temp Pulse Resp B/P (MAP) Pulse Ox O2 Delivery O2 Flow Rate FiO2 09/09/25 02:21 71 18 114/60 97 Room Air* 0 09/09/25 01:38 77 18 122/65 97 Room Air* 0 09/09/25 00:24 98.1 72 16 130/71 100 Room Air 0 DX & DISP Disposition: Discharge Departure Impression: Primary Impression: Near syncope Additional Impressions: Dehydration, Weakness Condition: Stable Additional Instructions: Your laboratory studies are normal. You do not have a problem with your heart at this point. You do have signs of dehydration from your chemistry panel it does show a slight elevation in your BUN. Otherwise the rest of your lab studies are normal. Drink more fluids drink enough fluids every day so that your urine runs clear at least once a day. Please follow-up with your primary care physician as you seemed to be getting admitted to this hospital frequently for dehydration. Perhaps you can come up with a plan with her primary care physician such as drinking Pedialyte every day. Referrals: MELISSA BRANDON MD (PCP) JOSETTE MARTINEZ MD Sep 09, 2025 00:56
[2025-09-09 01:27] LABS: IMMATURE GRANULOCYTE ABSOLUTE 0.02 K/uL (0-1); NUCLEATED RED BLOOD CELLS 0.0 % (0.0-0.19); PLATELET COUNT (AUTO) 209 K/uL (130-400); RED BLOOD CELL COUNT(AUTO) 3.92 MIL/uL (4.50-6.20); RED CELL DISTRIBUTION WIDTH 12.3 % (11.0-15.5); WHITE BLOOD COUNT (AUTO) 5.5 K/uL (4.8-10.8)
[2025-09-09 01:36] LABS: CREATININE 0.8 mg/dL (0.5-1.3); GLOMERULAR FILTR. RATE CALC 88.0 mL/min (>90); GLUCOSE,RANDOM 107.0 mg/dL (70-105); SODIUM SERUM 136.0 mmol/L (136-145); UREA NITROGEN, BLOOD 20.0 mg/dL (7-18)
[2025-09-09 01:40] LABS: ASPARTATE AMINOTRANSFERASE 14.0 U/L (10-37); TOTAL PROTEIN, SERUM 6.8 g/dL (6.0-8.3)
[2025-09-09 02:10] LABS: APPEARANCE,URINE CLEAR (CLEAR); GLUCOSE, URINE (UA) NEGATIVE (NEGATIVE); LEUKOCYTE ESTERASE ,URINE NEGATIVE Leu/uL (NEGATIVE); NITRATE,URINE NEGATIVE (NEGATIVE); OCCULT BLOOD,URINE NEGATIVE (NEGATIVE)
[2025-09-09 02:15] LABS: ADD UA MICROSCOPIC NO
[2025-09-09] MEDS: LACTATED RINGERS 1000ML IV STA (02:16)
[2025-09-09 03:36] VITALS: BP 126/88; PULSE 79; RESP 18; TEMP 98.2; O2SAT 96
--- NOTE | 2025-09-09 06:54 | EKG ---
[facility] Test Date: 2025-09-09 Test Time: 01:03:05 Pat Name: SHELDON SARAH Department: ED Room: Gender: M Ergonomic Specialist: [id number] : 1940 Requested By: JOSETTE MARTINEZ Order Number: [id number] Reading MD: Sebastian Church Measurements Intervals [place] Rate: 77 P: 56 PA: 183 QRS: 0 QRSD: 87 T: 0 QT: 361 QTc: 409 Interpretive Statements Sinus rhythm Indeterminate axis Low voltage, extremity leads Compared to ECG 04/21/2025 02:34:07 Indeterminate axis now present Low QRS voltage now present Myocardial infarct finding no longer present Electronically Signed On 09-09-2025 07:19:21 ENGINE REPAIRER by Sebastian Church Please click the below link to view image of tracing.
== END 2025-09-09 04:02 | disposition home or self-care (01) ==
LOC: EDH 00:22
DX: R55 Syncope and collapse (principal); E86.0 Dehydration; R53.1 Weakness; H53.8 Other visual disturbances; I10 Essential (primary) hypertension; K21.9 Gastro-esophageal reflux disease without esophagitis; Z88.5 Allergy status to narcotic agent; Z88.8 Allergy status to other drugs, medicaments and biological substances; Z79.899 Other long term (current) drug therapy
CPT/HCPCS: 99284; 80053; 83880; 85025; 81003; 36415; 93005; J7120 ×2

== ENCOUNTER 2025-10-09 22:57 | Emergency (ER) | payer OTHER, MEDICAID ==
[~2025-10-09] VITALS: Ht 162.6 cm; Wt 62.6 kg
--- NOTE | 2025-10-09 23:13 | EKG ---
[facility] Test Date: 2025-10-09 Test Time: 23:08:00 Pat Name: SHELDON SARAH Department: ED Room: Gender: M Noteman: [id number] : 1940 Requested By: KELSIE BADILLO Order Number: [id number] Reading MD: Nikko Claros Measurements Intervals [place] Rate: 78 P: 33 NM: 176 QRS: 13 QRSD: 85 T: 56 QT: 355 QTc: 404 Interpretive Statements Sinus rhythm Compared to ECG 09/09/2025 01:03:05 Indeterminate axis no longer present Electronically Signed On 10-10-2025 08:30:20 GATE CUTTER by Nikko Claros Please click the below link to view image of tracing.
[2025-10-09 23:22] LABS: IMMATURE GRANULOCYTE ABSOLUTE 0.03 K/uL (0-1); NUCLEATED RED BLOOD CELLS 0.0 % (0.0-0.19); PLATELET COUNT (AUTO) 187 K/uL (130-400); RED BLOOD CELL COUNT(AUTO) 3.77 MIL/uL (4.50-6.20); RED CELL DISTRIBUTION WIDTH 12.2 % (11.0-15.5); WHITE BLOOD COUNT (AUTO) 8.2 K/uL (4.8-10.8)
[2025-10-09 23:36] LABS: CREATININE 0.8 mg/dL (0.5-1.3); GLOMERULAR FILTR. RATE CALC 88.0 mL/min (>90); GLUCOSE,RANDOM 108.0 mg/dL (70-105); SODIUM SERUM 136.0 mmol/L (136-145); UREA NITROGEN, BLOOD 15.0 mg/dL (7-18)
[2025-10-09 23:41] LABS: ASPARTATE AMINOTRANSFERASE 17.0 U/L (10-37); TOTAL PROTEIN, SERUM 6.4 g/dL (6.0-8.3)
[2025-10-09] MEDS ORDERED: IOHEXOL-350 75 ML VIAL IV ONE (23:47)
--- NOTE | 2025-10-10 00:27 | ERN ---
ED Note History of Present Illness Stated Complaint: CONSTIPTION Chief Complaint: Constipation Time Seen by MD: 23:01 Dictation: Patient is a 84-year-old male with a past medical history of hypertension who was brought by EMS due to abdominal pain, stated the pain started today, also patient mentioned the he lost bowel movement was 2 days ago, has history of constipation. He has been taking laxative for constipation. He denies having similar abdominal pain before. Allergies: Coded Allergies: codeine (Unverified Allergy, Unknown, 09/27/23) diphenhydramine (Unverified Allergy, Unknown, 01/21/16) Home Meds Active Scripts Bisacodyl (Dulcolax) 10 Mg Supp.rect, 1 SUPP MI DAILY for constipation for 10 Days, #10 SUPP 0 Refills Prov:KELSIE TUCKER MD 10/10/25 Polyethylene Glycol 3350 (Gavilax) 17 Gram Powd.pack, 17 GM PO DAILY, #15 Prov:KELSIE TUCKER MD 10/10/25 Docusate Sodium (Colace) 100 Mg Capsule, 1 CAP PO BID for 15 Days, #30 CAP 0 Refills Prov:KELSIE TUCKER MD 10/10/25 Fluticasone Propionate (Flonase Nasal [place]) 50 Mcg/Actuation [place], 1 SPRAY NASAL BID for 7 Days, #50 SPRAY Prov:CORNELIA RON INSIDE SALES PROFESSIONAL 09/27/23 Reported Medications Lisinopril (Lisinopril) 20 Mg Tablet, 20 MG PO DAILY, TAB 10/02/23 Omeprazole (Omeprazole) 40 Mg Capsule.dr, 40 MG PO DAILY, CAP 10/02/23 Tamsulosin HCl (Tamsulosin HCl) 0.4 Mg Cap.er.24h, 0.4 MG PO DAILY, CAPSULE. 01/21/16 Past Medical History Past Medical History: GERD, Hypertension Additional Past Medical Hx: BPH Surgical History: Unknown Family History: Negative Social History: Lives alone Review of System Dictation NEGATIVE EXCEPT PER HPI Constitutional: Negative for fever,chills, and weight loss Eyes: Negative for injury, pain,redness, and discharge ENT: Negative for injury,pain or swelling Cardiovascular: denies chest pain, palpitations, and edema Respiratory: Negative for shortness of breath, cough, and wheezing, Abdomen/GI: Abdominal pain and constipation Back: Negative for injury and pain : Negative for injury, bleeding and discharge MS/Extremity: Negative for injury and deformity Skin: Negative for rash, and discoloration Neuro: Negative for headache, weakness, numbness, tingling, and seizure Psych: Negative for suicide ideation, homicidal ideation, and hallucinations Initial Vital Sign VS Vital Signs Date Time Temp Pulse Resp B/P (MAP) Pulse Ox O2 Delivery O2 Flow Rate FiO2 10/09/25 23:00 98.4 84 18 120/60 99 Room Air 0 10/10/25 00:23 21 Physical Exam Dictation General: awake, alert, NAD Head/Face: Normocephalic, atraumatic Eyes: PERRL, EOMI, vision at baseline ENT: oral cavity clear, TMs clear, no signs of infection Neck: Trachea midline, supple, no nuchal rigidity Cardiovascular: RRR, normal S1/S2, No MRGs, no JVD Respiratory: CTAB, no respiratory distress, No rales or wheezes Abdomen: Diffuse tenderness, more localized in the umbilical area Skin: Warm, dry, normal turgor, no rash MS/Extremity: Pulses equal, no cyanosis, neurovascular intact, FROM Neuro: COAx4, GCS 15, strength 5/5, CN 2-12 intact, normal cerebellar exam, normal gait, Psych: Normal behavior, mood, and affect normal Results (Laboratory/Radiology) Laboratory/Radiology Laboratory Tests Test 10/09/25 23:15 10/10/25 01:30 White Blood Count 8.2 K/uL (4.8-10.8) Red Blood Count 3.77 MIL/uL (4.50-6.20) L Hemoglobin 12.3 g/dL (14.0-18.0) L Hematocrit 34.6 % (42-54) L Mean Corpuscular Volume 91.8 fL (79-99) Mean Corpuscular Hemoglobin 32.6 pg (27.0-33.0) Mean Corpuscular Hemoglobin Concent 35.5 g/dL (32.0-36.0) Red Cell Distribution Width 12.2 % (11.0-15.5) Platelet Count 187 K/uL (130-400) Mean Platelet Volume 9.0 fL (7.5-10.5) Immature Granulocyte % (Auto) 0.4 % (0-1) Neutrophils (%) (Auto) 70.0 % (40.0-77.0) Lymphocytes (%) (Auto) 18.0 % (21.0-51.0) L Monocytes (%) (Auto) 9.4 % (3.0-13.0) Eosinophils (%) (Auto) 2.1 % (0.0-8.0) Basophils (%) (Auto) 0.1 % (0.0-5.0) Neutrophils # (Auto) 5.7 K/uL (1.8-7.7) Lymphocytes # (Auto) 1.5 K/uL (1.0-4.8) Monocytes # (Auto) 0.8 K/uL (0.1-1.0) Eosinophils # (Auto) 0.17 K/uL (0.00-0.70) Basophils # (Auto) 0.01 K/uL (0.00-0.20) Absolute Immature Granulocyte (auto 0.03 K/uL (0-1) Nucleated Red Blood Cells 0.0 % (0.0-0.19) Sodium Level 136 mmol/L (136-145) Potassium Level 4.0 mmol/L (3.5-5.1) Chloride Level 104 mmol/L (101-111) Carbon Dioxide Level 26 mmol/L (21-32) Blood Urea Nitrogen 15 mg/dL (7-18) Creatinine 0.8 mg/dL (0.5-1.3) Glomerular Filtration Rate Calc 88 mL/min (>90) Random Glucose 108 mg/dL (70-105) H Total Calcium 8.1 mg/dL (8.5-10.1) L Total Bilirubin 0.4 mg/dL (0.2-1.0) Aspartate Amino Transf (AST/SGOT) 17 U/L (10-37) Alanine Aminotransferase (ALT/SGPT) 25 U/L (12-78) Alkaline Phosphatase 46 U/L (50-136) L Troponin I High Sensitivity 6 ng/L (4-75) Total Protein 6.4 g/dL (6.0-8.3) Albumin 3.6 g/dL (3.5-5.0) Lipase 35 U/L (16-77) Urine Color LIGHT-YELLOW (YELLOW) Urine Appearance CLEAR (CLEAR) Urine pH 6.5 (5.0-8.0) Urine Specific [place] 1.044 (1.001-1.031) Urine Protein NEGATIVE mg/dL (NEGATIVE) Urine Glucose (UA) NEGATIVE mg/dL (NEGATIVE) Urine Ketones NEGATIVE mg/dL (NEGATIVE) Urine Occult Blood NEGATIVE (NEGATIVE) Urine Nitrate NEGATIVE (NEGATIVE) Urine Bilirubin NEGATIVE mg/dL (NEGATIVE) Urine Urobilinogen 0.2 mg/dL (0.2-1.0) Urine Leukocyte Esterase NEGATIVE Kyle/uL ED Course ED Course Orders Procedure Category Date Status Time Cbc With Differential LAB 10/09/25 Complete 23:01 Comprehensive LAB 10/09/25 Complete Metabolic Panel 23:01 Troponin I High LAB 10/09/25 Complete Sensitivity 23:01 Ct Abdomen/Pelvis CT 10/09/25 Resulted W/Contrast 23:01 12 Lead Ekg Tracing- EKG 10/09/25 Complete Technical 23:01 Lipase LAB 10/09/25 Complete 23:01 Iohexol (Omnipaque) PHA 10/09/25 Complete 23:47 Magnesium Citrate PHA 10/10/25 Complete (Magnesium Citrate) 01:30 Bisacodyl (Dulcolax) PHA 10/10/25 Complete 01:30 Urinalysis Profile LAB 10/10/25 Complete 01:20 Lactulose 20 Gm/30 Ml PHA 10/10/25 Complete Udcup (Constulose 02:00 Current Medications Medications (Trade) Dose Ordered Sig/Lisa Route PRN Reason Start Time Stop Time Status Last Admin Dose Admin Bisacodyl (DulcoLAX) 10 mg ONCE ONCE RC 10/10/25 01:30 10/10/25 01:31 DC 10/10/25 01:18 Iohexol (Omnipaque) 75 ml STK-MED ONCE IV 10/09/25 23:47 10/09/25 23:48 DC Lactulose (Constulose 20gm/ 30ml Udcup) 20 gm ONCE ONCE PO 10/10/25 02:00 10/10/25 02:01 DC 10/10/25 01:55 Magnesium Citrate (Magnesium Citrate) 296 ml ONCE ONCE PO 10/10/25 01:30 10/10/25 01:31 DC 10/10/25 01:17 Vital Signs Date Time Temp Pulse Resp B/P (MAP) Pulse Ox O2 Delivery O2 Flow Rate FiO2 10/10/25 03:34 98.2 83 18 120/70 97 Room Air* 0 21 10/10/25 01:32 98.4 84 18 120/60 99 Room Air 0 10/10/25 00:23 98.6 82 18 122/68 100 Room Air* 0 21 10/09/25 23:00 98.4 84 18 120/60 99 Room Air 0 Medical Decision Making MDM 84-year-old male who presented with the abdominal pain, constipation. Abdominal pain Constipation Possible SBO Ordered CT images of abdomen. EKG and troponin ordered Ordered magnesium, Dulcolax suppository. I discussed the findings in the CT with the patient, he will follow up with his PCP for further workup. 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 EXAM: CT Abdomen and Pelvis with IV contrast CLINICAL HISTORY: Patient presents with abdominal pain. TECHNIQUE: Axial computed tomography images of the abdomen and pelvis with intravenous contrast. CONTRAST: With intravenous contrast. COMPARISON: None provided. FINDINGS: LUNG BASES: Clear lung bases without pleural effusion. LIVER: Diffuse fatty infiltration. GALLBLADDER AND BILE DUCTS: Post cholecystectomy status. PANCREAS: Unremarkable. SPLEEN: Unremarkable. ADRENAL GLANDS: Unremarkable. KIDNEYS, URETERS, AND BLADDER: Mild bilateral perinephric fat stranding and haziness. A few bilateral simple renal cortical cysts, the largest measuring up to 4.8 4.0 cm. The urinary bladder is suboptimally distended with mild diffuse wall thickening. STOMACH AND BOWEL: Small hiatus hernia. Moderate fecal loading of the colon. A relatively well-defined soft tissue density lesion measuring approximately 2.1 2.3 3.8 cm, demonstrating central coarse calcifications with surrounding desmoplastic reaction and retraction of adjacent small bowel loops. Mesenteric panniculitis. APPENDIX: Normal caliber appendix. PERITONEUM: No free fluid or free air. LYMPH NODES: No pathologically enlarged lymph nodes. REPRODUCTIVE: The prostate has enlarged in caliber. VASCULATURE: Mild atheromatous wall calcifications of the aorta and iliac arteries without aneurysmal dilatation. BONES: Multilevel moderate spondylosis without acute osseous abnormality. 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 Left indirect inguinal hernia measuring, containing the distal descending colon with associated mesenteric fat and vessels. Diffuse hepatic steatosis. Bilateral simple renal cortical cysts. Mild urinary bladder wall thickening in the setting of suboptimal distension, likely representing cystitis. Clinical correlation is advised. Moderate colonic fecal loading. Prostatomegaly. RECOMMENDATION: Contrast-enhanced MRI abdomen with diffusion-weighted imaging or Ga-68 DOTATATE PET-CT for further characterization and staging. DX & DISP Disposition: Discharge Departure Impression: Primary Impression: Constipation Additional Impression: Intraabdominal mass Condition: Stable Scripts Bisacodyl (Dulcolax) 10 Mg Supp.rect 1 SUPP [place] DAILY for constipation for 10 Days, #10 SUPP 0 Refills Prov: KELSIE TUCKER MD 10/10/25 Polyethylene Glycol 3350 (Gavilax) 17 Gram Powd.pack 17 GM PO DAILY, #15 Prov: KELSIE TUCKER MD 10/10/25 Docusate Sodium (Colace) 100 Mg Capsule 1 CAP PO BID for 15 Days, #30 CAP 0 Refills Prov: KELSIE TUCKER MD 10/10/25 Additional Instructions: I discussed with the patient regarding incidental finding in the CT images concerning for mass in the mesenteric area, the patient's aware and said he will follow up with the PCP for further medical evaluation. I explained to the patient that he may be a need a MRI done as outpatient. The patient states that he understood the recommendations. RETURN TO ER FOR ANY ACUTE OR WORSENING SYMPTOMS. FOLLOW-UP IN 1-2 DAYS WITH PRIMARY PROVIDER FOR RECHECK OF TODAY'S SYMPTOMS. Referrals: MELISSA BRANDON MD (PCP) KELSIE TUCKER MD Oct 10, 2025 00:27
--- NOTE | 2025-10-10 01:12 | HMCIMG ---
EXAM: CT Abdomen and Pelvis with IV contrast CLINICAL HISTORY: Patient presents with abdominal pain. TECHNIQUE: Axial computed tomography images of the abdomen and pelvis with intravenous contrast. CONTRAST: With intravenous contrast. COMPARISON: None provided. FINDINGS: LUNG BASES: Clear lung bases without pleural effusion. LIVER: Diffuse fatty infiltration. GALLBLADDER AND BILE DUCTS: Post cholecystectomy status. PANCREAS: Unremarkable. SPLEEN: Unremarkable. ADRENAL GLANDS: Unremarkable. KIDNEYS, URETERS, AND BLADDER: Mild bilateral perinephric fat stranding and haziness. A few bilateral simple renal cortical cysts, the largest measuring up to 4.8 4.0 cm. The urinary bladder is suboptimally distended with mild diffuse wall thickening. STOMACH AND BOWEL: Small hiatus hernia. Moderate fecal loading of the colon. A relatively well-defined soft tissue density lesion measuring approximately 2.1 2.3 3.8 cm, demonstrating central coarse calcifications with surrounding desmoplastic reaction and retraction of adjacent small bowel loops. Mesenteric panniculitis. APPENDIX: Normal caliber appendix. PERITONEUM: No free fluid or free air. LYMPH NODES: No pathologically enlarged lymph nodes. REPRODUCTIVE: The prostate has enlarged in caliber. VASCULATURE: Mild atheromatous wall calcifications of the aorta and iliac arteries without aneurysmal dilatation. BONES: Multilevel moderate spondylosis without acute osseous abnormality. 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 Left indirect inguinal hernia measuring, containing the distal descending colon with associated mesenteric fat and vessels. Diffuse hepatic steatosis. Bilateral simple renal cortical cysts. Mild urinary bladder wall thickening in the setting of suboptimal distension, likely representing cystitis. Clinical correlation is advised. Moderate colonic fecal loading. Prostatomegaly. RECOMMENDATION: Contrast-enhanced MRI abdomen with diffusion-weighted imaging or Ga-68 DOTATATE PET-CT for further characterization and staging. /[place]
[2025-10-10] MEDS: MAGNESIUM CITRATE 296 ML SOLUTION PO ONE (01:17)
[2025-10-10 01:38] LABS: APPEARANCE,URINE CLEAR (CLEAR); GLUCOSE, URINE (UA) NEGATIVE (NEGATIVE); LEUKOCYTE ESTERASE ,URINE NEGATIVE Leu/uL (NEGATIVE); NITRATE,URINE NEGATIVE (NEGATIVE); OCCULT BLOOD,URINE NEGATIVE (NEGATIVE)
[2025-10-10 01:40] LABS: ADD UA MICROSCOPIC NO
[2025-10-10] MEDS: LACTULOSE 20 GM/30 ML UDCUP PO ONE (01:55)
[2025-10-10] MEDS ORDERED: BISA10SU61 PR (03:22)
[2025-10-10] MEDS ORDERED: DOCU-116 PO (03:22)
[2025-10-10] MEDS ORDERED: POLY17PO20 PO (03:22)
[2025-10-10 03:34] VITALS: BP 120/70; PULSE 83; RESP 18; TEMP 98.3; O2SAT 97
--- NOTE | 2025-10-10 04:21 | NUR ---
PATIENT AWAITING RIDE HOME
== END 2025-10-10 04:55 | disposition home or self-care (01) ==
LOC: EDH 22:57
DX: K59.00 Constipation, unspecified (principal); R19.00 Intra-abdominal and pelvic swelling, mass and lump, unspecified site; K21.9 Gastro-esophageal reflux disease without esophagitis; I10 Essential (primary) hypertension; Z88.5 Allergy status to narcotic agent; Z79.899 Other long term (current) drug therapy
CPT/HCPCS: 99285; 74177; 84484; 80053; 83690; 85025; 81003; 36415; 93005; Q9967